=== PATIENT | male | born 1955 | race African-American/Black ===

== ENCOUNTER 2016-11-01 10:23 | Emergency (ER) | payer OTHER ==
[~2016-11-01] VITALS: Ht 165.1 cm; Wt 72.9 kg
[2016-11-01 10:28] VITALS: TEMP 37; Ht 165.1 cm; Wt 72.9 kg
--- NOTE | 2016-11-01 10:44 | EMERGENCY ROOM VISIT NOTE ---
History Report prepared by Sherman: Markell Perez Under the Supervision of: Dr. Eduard Adair M.D. First contact with patient: 10:29 Chief Complaint: NEURO SYMPTOMS Stated Complaint: WEAKNESS Nursing Triage Summary: Pt arrives ALS from [facility]. Pt reports at 0800 this morning "my whole body went numb" Pt reports "right now my whole right side is numb" Pt with slurred speech Pt had previous stroke with severe left sided defecits. "My throat and my esophagus are paralyzed too. That's why I sound like this" History of Present Illness The patient is a 61 year old male who presents to the Emergency Room from [facility] via ALS with complaints of persistent right sided numbness starting last night. He has chronic numbness on the left side from a prior stroke but the right sided numbness is new. He also reports some slurred speech. He denies any abdominal pain, or any other complaints. Source of History: patient Onset: last night Position: other (right sided ) Quality: numbness Timing: other (persistent) Associated Symptoms: No abdominal pain Review of Systems See HPI for pertinent positives & negatives. A total of 10 systems reviewed and were otherwise negative. Past Medical & Surgical Medical Problems: (1) Hypertension (2) Tachycardia Family History Patient reports no known family medical history. Social History Smoking Status: Current Every Day Smoker Marital Status: single Housing Status: other Occupation Status: unemployed Current/Historical Medications No Active Prescriptions or Reported Meds Allergies Coded Allergies: Diazepam (Verified Allergy, Unknown, UNKNOWN, 11/01/16) Physical Exam Vital Signs Date Time Temp Pulse Resp B/P (MAP) Pulse Ox O2 Delivery O2 Flow Rate FiO2 11/01/16 13:45 94 11/01/16 13:24 88 20 155/103 98 11/01/16 12:38 89 11/01/16 12:16 87 20 155/99 95 Room Air 11/01/16 11:03 98 Room Air 11/01/16 10:34 97 11/01/16 10:28 37.0 88 16 162/98 99 Room Air Physical Exam GENERAL: Patient is a healthy-appearing well-nourished [] HEAD: Normocephalic atraumatic EYES: Ocular movements intact pupils equal and react to light OROPHARYNX mucous membranes are moist no exudates present no erythema or edema present NECK: Supple no nuchal rigidity CHEST: Good equal expansion LUNGS: Clear and equal to auscultation CARDIAC: Normal S1 and S2 ABDOMEN: Soft nontender no guarding BACK: No CVA tenderness EXTREMITIES: No pain upon palpation normal muscle strength in all groups no clubbing cyanosis or edema NEURO: Patient is following commands and answering questions appropriately. Alert and oriented x3 Cranial Nerves 2-12 grossly intact Medical Decision & Procedures ER Provider Diagnostic Interpretation: X-ray results as stated below per interpretation by me and the radiologist: SINGLE VIEW CHEST CLINICAL HISTORY: Strokelike symptoms. FINDINGS: An AP, portable, upright chest radiograph is compared to study dated 11/16/2015. The examination is degraded by portable technique and apical lordotic positioning. The cardiomediastinal silhouette is unremarkable. The lungs and pleural spaces are clear. No pneumothorax is seen. The bony thorax is grossly intact. IMPRESSION: No acute cardiopulmonary abnormality. Electronically signed by: Ilan Aguila M.D. 11/01/2016 11:56 AM Dictated Date/Time: 11/01/2016 11:[address] results as stated below per my review and radiologist interpretation: HEAD WITHOUT CONTRAST (CT) HISTORY: 61-year-old male presents with acute stroke like symptoms. TECHNIQUE: Multiple axial CT images of the head were obtained without contrast. COMPARISON: Head CT 11/16/2015. FINDINGS: There is no acute intracranial hemorrhage, midline shift, hydrocephalus, abnormal extra-axial collections, mass or large area of acute territorial ischemia. encephalomalacia in the right MCA distribution involving the hong radiata is unchanged. The right lateral ventricle is asymmetrically larger than the left secondary to ex vacuo changes. The calvarium is intact. There are trace bilateral mastoid effusions. There is minimal ethmoid sinus disease. Soft tissues are within normal limits. IMPRESSION: 1. No acute intracranial abnormality. 2. Encephalomalacia from prior infarction within the right hong radiata, external capsule and operculum appears unchanged. 3. Trace bilateral mastoid effusions. Electronically signed by: Thuan Abreu 11/01/2016 11:58 AM Dictated Date/Time: 11/01/2016 11:53 AM Laboratory Results 11/01/16 11:30 Red Blood Count 5.15, Mean Corpuscular Volume 83.9, Mean Corpuscular Hemoglobin 28.0, Mean Corpuscular Hemoglobin Concent 33.3, Mean Platelet Volume 9.1, Neutrophils (%) (Auto) 56.4, Lymphocytes (%) (Auto) 33.4, Monocytes (%) (Auto) 8.3, Eosinophils (%) (Auto) 1.5, Basophils (%) (Auto) 0.2, Neutrophils # (Auto) 4.83, Lymphocytes # (Auto) 2.87, Monocytes # (Auto) 0.71, Eosinophils # (Auto) 0.13, Basophils # (Auto) 0.02 11/01/16 12:37 Test 11/01/16 11:05 11/01/16 11:06 11/01/16 11:30 11/01/16 11:52 Bedside Prothrombin Time INR 1.0 (0.9-1.1) Bedside Glucose 91 mg/dl (70-99) White Blood Count 8.58 K/uL (4.8-10.8) Red Blood Count 5.15 M/uL (4.7-6.1) Hemoglobin 14.4 g/dL (14.0-18.0) Hematocrit 43.2 % (42-52) Mean Corpuscular Volume 83.9 fL (80-100) Mean Corpuscular Hemoglobin 28.0 pg (25-34) Mean Corpuscular Hemoglobin Concent 33.3 g/dl (32-36) Platelet Count 249 K/uL (130-400) Mean Platelet Volume 9.1 fL (7.4-10.4) Neutrophils (%) (Auto) 56.4 % Lymphocytes (%) (Auto) 33.4 % Monocytes (%) (Auto) 8.3 % Eosinophils (%) (Auto) 1.5 % Basophils (%) (Auto) 0.2 % Neutrophils # (Auto) 4.83 K/uL (1.4-6.5) Lymphocytes # (Auto) 2.87 K/uL (1.2-3.4) Monocytes # (Auto) 0.71 K/uL (0.11-0.59) Eosinophils # (Auto) 0.13 K/uL (0-0.5) Basophils # (Auto) 0.02 K/uL (0-0.2) RDW Standard Deviation 43.4 fL (36.4-46.3) RDW Coefficient of Variation 14.4 % (11.5-14.5) Immature Granulocyte % (Auto) 0.2 % Immature Granulocyte # (Auto) 0.02 K/uL (0.00-0.02) Urine Color YELLOW Urine Appearance CLEAR (CLEAR) Urine pH 7.0 (4.5-7.5) Urine Specific [place] 1.013 (1.000-1.030) Urine Protein NEG (NEG) Urine Glucose (UA) NEG (NEG) Urine Ketones NEG (NEG) Urine Occult Blood NEG (NEG) Urine Nitrite NEG (NEG) Urine Bilirubin NEG (NEG) Urine Urobilinogen NEG (NEG) Urine Leukocyte Esterase NEG (NEG) Test 11/01/16 12:37 Prothrombin Time 10.7 SECONDS (9.0-12.0) Prothromb Time International Ratio 1.0 (0.9-1.1) Activated Partial Thromboplast Time 34.0 SECONDS (21.0-31.0) Partial Thromboplastin Ratio 1.3 Anion Gap 6.0 mmol/L (3-11) Est Creatinine Clear Calc Drug Dose 66.6 ml/min Estimated GFR () 93.1 Estimated GFR (Non- 80.3 BUN/Creatinine Ratio 12.1 (10-20) Calcium Level 9.5 mg/dl (8.5-10.1) Total Creatine Kinase 149 U/L (39-308) Creatine Kinase MB 0.8 ng/ml (0.5-3.6) Creatine Kinase MB Ratio 0.5 (0-3.0) Troponin I < 0.015 ng/ml (0-0.045) Labs reviewed by ED physician. ECG Indication: other (Numbness) Rate (beats per minute): 81 Rhythm: normal sinus Findings: no acute ischemic change, no ectopy ED Course 1029: Past medical records reviewed. The patient was evaluated in room B07. A complete history and physical examination was performed. 1052: Sodium Chloride 1000 ml @ 50 mls/hr IV 1230: Upon reexamination the patient is resting comfortably. I had a long conversation with the patient. I recommended an MRI and medication for hypertension. He refused both and realizes the consequences which may include . I recommended hospitalization and a stroke workup, and he refused both. I discussed results and treatment plan with the patient. He verbalizes agreement and understanding. The patient is ready for discharge. 1257: I discussed the patient's case with the physician at [facility]. Medical Decision Medication Reconciliation: I attest that I have personally reviewed the patient' s current medication list Blood Pressure Screening: Patient was found to have an elevated blood pressure and was referred to their primary care doctor for recheck and further treatment Differential diagnosis: Etiologies such as metabolic, infection, hypo/hyperglycemia, electrolyte abnormalities, cardiac sources, intracerebral event, toxicologic, neurologic, as well as others were entertained. This is a 61-year-old male who has a history of CVA in the past. The patient does not move his left side of his body well. The patient reports he had bilateral numbness to his upper torso that began last evening. He is now complaining of right-sided weakness that also started last evening. I will note that the patient is moving his right arm and right leg when nobody is looking however when he is being examined he refuses to move them. I will also note that as the patient's symptoms have been ongoing since last evening I would expect him show up on a CAT scan of the head. As a CAT scan of the head is normal I did recommend to the patient that he receive an MRI as well as medications to better control his blood pressure. The patient refused both. I did discuss this with the shelter doctor who agreed to accept the patient back. I explained very clearly to the patient that he was risking as well as further debilitation from more strokes. The patient stated "what will happen will happen and its in god's hands." The patient has demonstrated no significant defect in the decision-making capacity to make choices. The encounter had a good level of communication with language the patient can easily understand. I feel trust was present and conveyed that our action/intentions were the best interest of the patient. The patient was given all relevant information and reiterated the explained risks and benefits. The patient explained the reasoning for refusing treatment clearly. The patient possesses and expresses a set of values and goals, the ability to communicate and understand, and an ability to reason and deliberate. Despite acting emphatically, attentively and with the utmost patient's the patient declined further treatment. I offered options, negotiated, and explored every reasonable choice. I must respect the patient's autonomy and that they feel that their choices are best for them despite the associated risks of leaving without completing the evaluation. The patient was informed about the findings as listed above. All questions were answered and he was pleased with the treatment. Return instructions were outlined and the patient was discharged in stable condition. Consults Time Called: 1255 Consulting Physician: physician at [facility] Returned Call: 1257 I discussed the patient's case with the physician at [facility]. Impression Primary Impression: TIA (transient ischemic attack) Additional Impression: Hypertension Scribe Attestation The scribe's documentation has been prepared under my direction and personally reviewed by me in its entirety. I confirm that the note above accurately reflects all work, treatment, procedures, and medical decision making performed by me. Departure Information Dispostion Home / Self-Care Prescriptions No Active Prescriptions or Reported Meds Referrals [facility] (PCP) Forms HOME CARE DOCUMENTATION FORM, IMPORTANT VISIT INFORMATION, WORK / SCHOOL INSTRUCTIONS Patient Instructions ED Transient Ischemic Attack, Hypertension Or, [facility] Additional Instructions Follow up with DR Carvalho's office You were found to have an elevated blood pressure today (>120 sytolic or >90 diastolic). Per medicare guidelines, you need to follow up with this blood pressure screening with your Primary Care Physician (PCP). For a new PCP call [phone]. You have been examined and treated today on an emergency basis only. This is not a substitute for, or an effort to provide, complete comprehensive medical care. It is impossible to recognize and treat all injuries or illnesses in a single emergency department visit. It is therefore important that you follow up closely with your PCP. Call as soon as possible for an appointment. Thank you for your time and consideration. I look forward to speaking with you again soon. Please don't hesitate to call us if you have any questions. Problem Qualifiers Primary Impression: TIA (transient ischemic attack) Transient cerebral ischemia type: unspecified Qualified Codes: G45.9 - Transient cerebral ischemic attack, unspecified Additional Impression: Hypertension Hypertension type: essential hypertension Qualified Codes: I10 - Essential ( primary) hypertension
[2016-11-01] MEDS ORDERED: SODIUM CHLORIDE 0.9% 1000ML 1,000 ML IV SCH (10:52)
[2016-11-01 11:03] VITALS: O2SAT 98
[2016-11-01 11:44] LABS: BASO % 0.2 %; BASO ABS # 0.02 K/uL (0-0.2); COMPLETE YES; EOS % 1.5 %; HEMATOCRIT 43.2 % (42-52); IG% 0.2 %; LYMPH % 33.4 %; LYMPH ABS # 2.87 K/uL (1.2-3.4); MEAN CELL VOLUME 83.9 fL (80-100); MEAN CORPUSCULAR HGB CONC 33.3 g/dl (32-36); MEAN PLATELET VOLUME 9.1 fL (7.4-10.4); MONO % 8.3 %; NEUT % 56.4 %; PLATELET COUNT 249 K/uL (130-400); RED BLOOD COUNT 5.15 M/uL (4.7-6.1); WHITE BLOOD COUNT 8.58 K/uL (4.8-10.8)
--- NOTE | 2016-11-01 11:57 | DIAGNOSTIC IMAGING REPORT ---
SINGLE VIEW CHEST CLINICAL HISTORY: Strokelike symptoms. FINDINGS: An AP, portable, upright chest radiograph is compared to study dated 11/16/2015. The examination is degraded by portable technique and apical lordotic positioning. The cardiomediastinal silhouette is unremarkable. The lungs and pleural spaces are clear. No pneumothorax is seen. The bony thorax is grossly intact. IMPRESSION: No acute cardiopulmonary abnormality. Electronically signed by: Ilan Aguila M.D. 11/01/2016 11:56 AM Dictated Date/Time: 11/01/2016 11:55 AM
--- NOTE | 2016-11-01 12:00 | DIAGNOSTIC IMAGING REPORT ---
HEAD WITHOUT CONTRAST (CT) HISTORY: 61-year-old male presents with acute stroke like symptoms. TECHNIQUE: Multiple axial CT images of the head were obtained without contrast. COMPARISON: Head CT 11/16/2015. FINDINGS: There is no acute intracranial hemorrhage, midline shift, hydrocephalus, abnormal extra-axial collections, mass or large area of acute territorial ischemia. encephalomalacia in the right MCA distribution involving the hong radiata is unchanged. The right lateral ventricle is asymmetrically larger than the left secondary to ex vacuo changes. The calvarium is intact. There are trace bilateral mastoid effusions. There is minimal ethmoid sinus disease. Soft tissues are within normal limits. IMPRESSION: 1. No acute intracranial abnormality. 2. Encephalomalacia from prior infarction within the right hong radiata, external capsule and operculum appears unchanged. 3. Trace bilateral mastoid effusions. Electronically signed by: Thuan Abreu 11/01/2016 11:58 AM Dictated Date/Time: 11/01/2016 11:53 AM
[2016-11-01 12:07] LABS: URINE APPEARANCE CLEAR (CLEAR); URINE BILIRUBIN NEG (NEG); URINE COLOR YELLOW; URINE NITRITE NEG (NEG); URINE SPECIFIC GRAVITY 1.013 (1.000-1.030); UROBILINOGEN NEG (NEG); ZZUR CULT IF INDIC CLEAN CATCH NO
[2016-11-01 12:12] LABS: MANUAL MICROSCOPIC REQUIRED? NO; REVIEW REQ? NO
[2016-11-01 13:02] LABS: PARTIAL THROMBOPLASTIN RATIO 1.3; PROTHROMBIN TIME (PATIENT) 10.7 SECONDS (9.0-12.0)
[2016-11-01 13:13] LABS: BLOOD UREA NITROGEN 12 mg/dl (7-18); BUN/CREATININE RATIO 12.1 (10-20); CALCIUM 9.5 mg/dl (8.5-10.1); CARBON DIOXIDE 28 mmol/L (21-32); CHLORIDE 107 mmol/L (98-107); GLUCOSE 82 mg/dl (70-99); SODIUM 141 mmol/L (136-145)
[2016-11-01 13:18] LABS: CKMB/CK RATIO 0.5 (0-3.0)
[2016-11-01 13:24] VITALS: BP 155/103; O2SAT 98
[2016-11-01 13:45] VITALS: PULSE 94
== END 2016-11-01 13:25 | disposition home or self-care (01) ==
LOC: EDBD 10:23 → C.EDB 10:24
DX: G45.9 Transient cerebral ischemic attack, unspecified (principal); I10 Essential (primary) hypertension; F17.200 Nicotine dependence, unspecified, uncomplicated; Z86.73 Personal history of transient ischemic attack (TIA), and cerebral infarction without residual deficits; Z88.8 Allergy status to other drugs, medicaments and biological substances